=== PATIENT | male | born 1965 | race Caucasian/White ===

== ENCOUNTER 2020-11-12 18:09 | Emergency (ER) | payer OTHER ==
[~2020-11-12] VITALS: Ht 175.3 cm; Wt 94.3 kg
[2020-11-12] MEDS ORDERED: LISINOPRIL5 MG PO (18:17)
[2020-11-12] MEDS ORDERED: ZIAC 2.5-6.251 EACH PO (18:18)
[2020-11-12 19:33] LABS: ABSOLUTE BASOPHILS 0.1 thou/uL (0.0-0.2); ABSOLUTE EOSINOPHILS 0.1 thou/uL (0.0-0.7); ABSOLUTE LYMPHOCYTES 1.9 thou/uL (0.8-5.3); ABSOLUTE MONOCYTES 0.7 thou/uL (0.0-1.2); EOSINOPHILS 1.2 %; HEMATOCRIT 43.3 % (42.0-52.0); HEMOGLOBIN 14.7 gm/dL (14.0-18.0); LYMPHOCYTES 33.2 %; MCH 28.6 pg (26.0-34.0); MCHC 33.9 g/dL (28.0-37.0); MCV 84.3 fL (80.0-100.0); MONOCYTES 12.3 %; MPV 8.1 fl. (7.2-11.1); NUCLEATED RBCS 0 /100WBC; PLATELET COUNT* 166 thou/uL (150-400); POLYS 52.3 %; RBC 5.13 mil/uL (4.50-6.00); WBC 5.8 thou/uL (4.0-11.0)
[2020-11-12 19:43] LABS: CALCIUM 8.8 mg/dL (8.5-10.1); CREATININE 1.3 mg/dL (0.6-1.3); POTASSIUM 3.9 mmol/L (3.5-5.1)
[2020-11-12 19:57] LABS: CK-MB MASS 1.1 ng/mL (<0.5-3.6); MAGNESIUM 2.1 mg/dL (1.8-2.4); TOTAL BILIRUBIN 0.4 mg/dL (<0.1-1.0); TOTAL PROTEIN 7.2 g/dL (6.4-8.2)
[2020-11-12] MEDS ORDERED: PRILOSEC OTC20 MG PO (21:36)
[2020-11-12 22:00] VITALS: BP 165/75
--- NOTE | 2020-11-13 09:36 | EKG ---
[place] [address] ELECTROCARDIOGRAM REPORT Name: BROOKEMARTHA Miller Room: [facility]#: [id number] Admission: 11/12/20 Attend Phys: Discharge: 11/12/20 Date of : 65 Date of Service: 11/12/201813 Report #: [id number] THIS REPORT FOR: //name// [facility] ED Test Date: 2020-11-12 Test Time: 18:14:42 Pat Name: MARTHA COX Department: Room: Gender: [employer]: [place] : 1965 Requested By: Steve Morrison Order Number: [id number] MD: Sonny Carreno Measurements Intervals Independence Rate: 77 P: 47 MD: 167 QRS: 1 QRSD: 114 T: 3 QT: 380 QTc: 431 Interpretive Statements Sinus rhythm Probable left atrial enlargement Incomplete right bundle branch block Baseline wander in lead(s) I,III,aVL No previous ECG available for comparison Electronically Signed On 11-13-2020 9:36:44 CDT by Sonny Carreno [email or web address] <ELECTRONICALLY SIGNED> By: Sonny Carreno MD, [facility] 11/13/20 0936 1814 1814 Sonny Carreno MD, [facility] /EPI
== END 2020-11-12 22:00 | disposition home or self-care (01) ==
LOC: M.ERS 18:09
PROVIDERS: Nurse Practitioner Psychiatric/Mental Health
DX: R10.13 Epigastric pain (principal); Z20.822 Contact with and (suspected) exposure to COVID-19; R42 Dizziness and giddiness; R63.4 Abnormal weight loss; Z79.899 Other long term (current) drug therapy